=== PATIENT | female | born 1990 | race Caucasian/White ===

== ENCOUNTER 2020-03-19 08:16 | Observation (INO) | payer OTHER, SELFPAY ==
[2020-03-19 08:37] LABS: #Lymphocytes 0.8 thou/uL (1.20-3.40); #Monocytes 0.8 thou/uL (0.11-0.59); %Eosinophils 0.1 % (0.0-10.0); %Lymphocytes 4.3 % (21.0-51.0); %Monocytes 4.7 % (0.0-10.0); %Neutrophils 90.9 % (42.0-75.0); Hemoglobin 11.8 g/dL (12.0-16.0); Mean Corpuscular HGB CONC 33.6 g/dL (32.0-36.0); Mean Corpuscular Volume 95.3 fL (78.0-98.0); Mean Platelet Volume 9.6 fL (7.4-10.4); Platelet Count 134 thou/uL (130-400); RBC Distribution Width 12.8 % (11.5-14.5); Red Blood Cell (RBC) Count 3.69 mill/uL (4.20-5.40); White Blood Cell (WBC) Count 17.7 thou/uL (4.8-10.8)
[2020-03-19] MEDS ORDERED: Acetaminophen 500 MG TAB PO PRN (08:55)
[2020-03-19] MEDS ORDERED: Ondansetron PF 4 MG/2 ML Vial IVP PRN (08:55)
[2020-03-19] MEDS ORDERED: Promethazine HCl 25 MG/ML VIAL IM PRN (08:55)
[2020-03-19] MEDS ORDERED: Milk Of Magnesia 30 ML UDCUP PO PRN ×2 (08:55→08:59)
[2020-03-19] MEDS ORDERED: hydrALAZINE 20 MG/ML VIAL SLOW IVP PRN ×3 (08:55→08:59)
[2020-03-19] MEDS ORDERED: Bisacodyl 10 MG SUPP PR PRN ×2 (08:55→08:59)
[2020-03-19] MEDS ORDERED: Adacel (T-DAP) 0.5 ML SYRINGE IM ONE (08:55)
[2020-03-19] MEDS ORDERED: Misoprostol 200 MCG TAB VAG PRN (08:59)
[2020-03-19] MEDS ORDERED: Benzocaine-Menthol 82.5 ML CAN TOP PRN (08:59)
[2020-03-19] MEDS ORDERED: Methylergonovine 0.2 MG/ML VIAL IM PRN (08:59)
[2020-03-19] MEDS ORDERED: HYDROcodone/Acetaminophen 5/325 mg Tablet PO PRN ×2 (08:59)
[2020-03-19] MEDS ORDERED: Lanolin Ointment 7 GM TUBE TOP PRN (08:59)
[2020-03-19] MEDS ORDERED: NS / Oxytocin 40 units/1000ml 1,000 ML IV SCH ×2 (09:00)
[2020-03-19] MEDS ORDERED: Docusate Calcium (SURFAK) 240 MG CAP PO SCH ×2 (09:00)
[2020-03-19] MEDS ORDERED: Prenatal Vitamin 1 TAB PO SCH (09:00)
--- NOTE | 2020-03-19 09:04 | PDOC.LDHP ---
Labor and Delivery H&P Chief complaint: other (delivered at home) HPI: 29 y/o s/p at home with linesperson, Rhianna Gordon at 0630, presents via EMS for evaluation of PPH. Following delivery of placenta, she started hemorrhaging. Initial estimate was 3L blood loss, but recalculated to be aroudn 1800ml. Denies any other issues. Has history of PPH and shoulder dystocia with prior delivery. Received pitocin and cytotec at home. ROS neg for HEENT, cv, pulm, gi, gu, neuro, psych, skin, musculoskeletal or constitutional symptoms other than mentioned above. OB History Details: 1 prior term complicated by shoulder dystocia and PPH. Current complications: none Past Medical History: None Current medications: pre-cayla vitamins Previous surgical history: none Social history: none - Physical Exam Vital signs reviewed and normal: yes General: NAD, resting Lungs: nonlabored breathing Abdomen: gravid Extremeties: no edema - Assessment 29 y/o s/p complicated by PPH, stable. - Plan Plan: admit to L&D -: Will monitor bleeding. Receiving pitocin IV at this time but no further intervention needed at this time. Initial blood count 11.8, will recheck in 4 hours. If stable this afternoon, can possibly go home. Patient refusing baby admission and care.
[2020-03-19 09:40] LABS: Syphilis Antibody Nonreactive (Nonreactive); Syphilis Antibody Index 0.05 S/CO (<1.00 Non-Reactive)
[2020-03-19 09:41] LABS: HBSAg Index 0.15 S/CO (0-0.99); HIV (1/2) Antibody/Antigen Non-Reactive (NonReactive); HIV 1/2 INDEX 0.12 S/CO (<1.00); Hep B Surf Ag Non-Reactive S/CO (NonReactive)
[2020-03-19 12:28] LABS: #Basophils 0.1 thou/uL (0.0-0.2); #Monocytes 1.3 thou/uL (0.11-0.59); #Neutrophils 12.7 thou/uL (1.40-6.50); %Basophils 0.6 % (0.0-1.0); %Eosinophils 0.2 % (0.0-10.0); %Lymphocytes 6.6 % (21.0-51.0); %Monocytes 8.3 % (0.0-10.0); %Neutrophils 84.3 % (42.0-75.0); Hemoglobin 10.9 g/dL (12.0-16.0); Mean Corpuscular HGB CONC 33.6 g/dL (32.0-36.0); Mean Corpuscular Hemoglobin 32.2 pg (27.0-31.0); Mean Corpuscular Volume 95.8 fL (78.0-98.0); Mean Platelet Volume 9.7 fL (7.4-10.4); Platelet Count 129 thou/uL (130-400); RBC Distribution Width 12.8 % (11.5-14.5); White Blood Cell (WBC) Count 15.1 thou/uL (4.8-10.8)
[2020-03-19] MEDS ORDERED: Lidocaine 1% (PF) 30 ML VIAL ONE (12:55)
--- NOTE | 2020-03-19 13:26 | PDOC.BPN ---
- Brief Progress Note Patient reported that she was told her basin operator cut an episiotomy. After evaluation, a 2nd degree midline episiotomy was identified and repaired in a standard fashion. Bleeding minimal with about 200ml EBL since arrival. Hgb 11.8 on admission, 10.9 four hours later. Patient would like to d/c home as soon as possible. Once meeting d/c milestones, will be cleared for d/c as she appears stable hemodynamically.
[2020-03-19] MEDS ORDERED: Ibuprofen 800 MG TAB PO SCH (14:00)
[2020-03-19 16:31] VITALS: BMI 25.0
[2020-03-19 16:55] VITALS: TEMP 98.4
[2020-03-19] MEDS ORDERED: Ferrous Sulfate 325 MG TAB PO SCH ×2 (17:00)
--- NOTE | 2020-03-19 17:23 | DIS ---
DATE OF ADMISSION: 03/19/2020 DATE OF DISCHARGE: 03/19/2020 DIAGNOSES: 1. Spontaneous vaginal delivery at outside hospital. 2. Status post shoulder dystocia. 3. Status post hemorrhage. 4. Second-degree episiotomy. PROCEDURE: Second-degree episiotomy repair. HOSPITAL COURSE: The patient was brought to the emergency room after vaginal delivery with undercover cop at home. Following delivery of the placenta, she reportedly had a very large blood loss and was brought in. The estimate at the time of arrival was 3 L of blood loss but was recalculated later to be closer to 1800 mL. Hemoglobin on admission was 11.8. She was no longer bleeding and appeared hemodynamically stable. She was mildly tachycardic, which resolved with fluids. She was monitored for several hours with no further significant bleeding. Her hemoglobin was repeated after 4 hours and had dropped to 10.9. The patient was feeling well. She reported episiotomy at the time of delivery, which was noted to be second-degree and repaired in the standard fashion with good hemostasis. She and her refused to have the baby admitted or to have any care for the baby. She was meeting all milestones for discharge and discharged home. FOLLOWUP: With undercover cop as scheduled. DIET: Regular. ACTIVITIES: Pelvic rest. INSTRUCTIONS: Call or return for heavy vaginal bleeding, problems with episiotomy or other concerns. Job ID: [id number]
[2020-03-19 17:30] LABS: #Eosinphils 0.1 thou/uL (0.0-0.7); #Lymphocytes 1.3 thou/uL (1.20-3.40); #Monocytes 1.1 thou/uL (0.11-0.59); #Neutrophils 9.4 thou/uL (1.40-6.50); %Basophils 0.3 % (0.0-1.0); %Eosinophils 0.6 % (0.0-10.0); %Lymphocytes 11.2 % (21.0-51.0); %Monocytes 8.9 % (0.0-10.0); Hemoglobin 10.3 g/dL (12.0-16.0); Mean Corpuscular HGB CONC 34.5 g/dL (32.0-36.0); Mean Corpuscular Hemoglobin 33.3 pg (27.0-31.0); Mean Corpuscular Volume 96.7 fL (78.0-98.0); Mean Platelet Volume 9.9 fL (7.4-10.4); Platelet Count 115 thou/uL (130-400); RBC Distribution Width 12.9 % (11.5-14.5); White Blood Cell (WBC) Count 11.9 thou/uL (4.8-10.8)
== END 2020-03-19 18:40 | disposition home or self-care (01) ==
LOC: ERS 08:16 → INTOOBSV 08:38 → UNDOADMOB 08:38 → L&D 08:38 → UNDOADMOB 08:38 → ERS 08:45 → UNDODISOB 18:40 → EDSTATUS 03-25 15:47
PROVIDERS: ADMIT Obstetrics & Gynecology; ATTEND Obstetrics & Gynecology
DX: O72.2 Delayed and secondary postpartum hemorrhage (principal)
CPT/HCPCS: 36415; 51701; 85025; 86780; 86850; 86900; 86901; 87340; 87389; 99281; J2001; J2405